=== PATIENT | male | born 1965 | race African-American/Black ===

== ENCOUNTER 2016-12-20 18:01 | Inpatient (IN) | payer OTHER, SELFPAY ==
[~2016-12-20] VITALS: Ht 185.4 cm; Wt 93.0 kg
[~2016-12-20 18:01] MED LIST: NOCURR
[2016-12-20 18:27] LABS: GLUCOSE,POINT OF CARE 141 MG/DL (70-110)
[2016-12-20 18:41] LABS: BASOPHILS % (AUTO) 0.9 % (0.0-2.0); EOSINOPHILS % (AUTO) 0.5 % (1.0-6.0); HEMATOCRIT 39.5 % (41-53); HEMOGLOBIN 13.3 g/dL (13.5-17.5); LYMPHOCYTES # (AUTO) 0.7 K/uL (1.0-4.8); LYMPHOCYTES % (AUTO) 24.4 % (22.0-44.0); MEAN CORPUSCULAR HEMOGLOBIN 29.8 pg (26.0-34.0); MEAN CORPUSCULAR HGB CONC 33.6 G/dL (31.0-37.0); MEAN CORPUSCULAR VOLUME 89 fL (80-100); MONOCYTES # (AUTO) 0.3 K/uL (0.1-1.0); NEUTROPHILS # (AUTO) 1.8 K/uL (1.8-7.7); NEUTROPHILS % (AUTO) 64.2 % (40.0-70.0); PLATELET COUNT (AUTO) 237 K/uL (150-450); RED BLOOD CELL COUNT(AUTO) 4.45 MIL/uL (4.50-5.90); RED CELL DISTRIBUTION WIDTH 14.3 % (11.5-14.5); WHITE BLOOD COUNT (AUTO) 2.7 K/uL (4.5-11.0)
[2016-12-20 18:50] LABS: ANION GAP 12 mmol/L (8-16); CALCIUM, TOTAL 8.4 mg/dL (8.8-10.5); CARBON DIOXIDE 28 mmol/L (22-29); CHLORIDE 103 mmol/L (98-107); CREATININE 0.85 mg/dL (0.60-1.30); GLOMERULAR FILTR. RATE CALC > 60 mL/min (>60); POTASSIUM 3.8 mmol/L (3.5-5.1); SODIUM SERUM 143 mmol/L (136-145); UREA NITROGEN, BLOOD 5 mg/dL (7-18)
[2016-12-20 18:56] LABS: ACETAMINOPHEN < 2 mcg/mL (10-30); ALANINE AMINOTRANSFERASE 32 U/L (12-78); ALBUMIN 3.7 g/dL (3.4-5.0); ASPARTATE AMINOTRANSFERASE 28 U/L (15-37); BILIRUBIN,TOTAL 0.6 mg/dL (0.1-1.0); TOTAL PROTEIN, SERUM 7.5 g/dL (6.4-8.2)
[2016-12-20 19:02] LABS: SALICYLATE < 2.8 mg/dL (2.8-20.0)
[2016-12-20 19:40] LABS: RBC MORPHOLOGY COMMENT NORMAL RBC MORPH
[2016-12-20] MEDS ORDERED: SODIUM CHLORIDE 0.9% 2,000 ML IV ONE (19:41)
[2016-12-20] MEDS: SODIUM CHLORIDE 0.9% 1,000 ML, SODIUM CHLORIDE 0.9% 1,000 ML IV ONE ×2 (20:09→20:52)
[2016-12-20] MEDS ORDERED: FLUMAZENIL 0.1 MG/ML 5 ML VIAL IVP ONE ×2 (20:15→20:45)
[2016-12-20] MEDS ORDERED: HydrALAZINE HCL 20 MG/ML VIAL IVP ONE (20:15)
[2016-12-20] MEDS ORDERED: ACETAMINOPHEN 325 MG TABLET PO PRN (22:30)
[2016-12-20] MEDS ORDERED: HALOPERIDOL LACTATE 5 MG/ML VIAL IVP ONE (22:30)
[2016-12-20] MEDS ORDERED: 0.9% SODIUM CHLORIDE 10 ML SYRINGE IVP PRN (22:30)
[2016-12-20 23:20] VITALS: BP 132/90
[2016-12-21] MEDS ORDERED: ACETAMINOPHEN 325 MG TABLET PO PRN (00:15)
[2016-12-21] MEDS ORDERED: IPRATROPIUM BROMIDE 0.5 MG/2.5 ML NEB SOLUTION NEB PRN (00:15)
[2016-12-21] MEDS ORDERED: ONDANSETRON HCL 4 MG/2 ML VIAL IVP PRN (00:15)
[2016-12-21] MEDS ORDERED: SODIUM CHLORIDE 0.45% 1,000 ML IV SCH (00:15)
[2016-12-21] MEDS ORDERED: ALBUTEROL SULFATE 2.5 MG/0.5 ML NEB SOLUTION NEB PRN (00:15)
[2016-12-21 01:28] LABS: AMMONIA 31 umol/L (11-32); TROPONIN I < 0.02 ng/mL (0.00-0.05)
[2016-12-21 05:05] VITALS: BP 144/91
[2016-12-21] MEDS ORDERED: INFLUENZA VIRUS VACCINE QVS 2017-18 (3YR+)/PF 60 MCG/0.5 ML SYRINGE IM ONE (07:00)
[2016-12-21] MEDS ORDERED: INSULIN ASPART 100 UNITS/ML SQ PRN (07:00)
[2016-12-21] MEDS ORDERED: CloNIDine HCL 0.1 MG TABLET PO PRN (07:00)
[2016-12-21] MEDS ORDERED: DEXTROSE 50%-WATER 25 GM/50 ML SYRINGE IVP PRN (07:00)
[2016-12-21 07:20] VITALS: BP 130/80
[2016-12-21] MEDS: PANTOPRAZOLE SODIUM 40 MG/VIAL IVP SCH (08:18)
[2016-12-21 09:09] LABS: GLUCOSE,POINT OF CARE 101 MG/DL (70-110)
[2016-12-21] MEDS ORDERED: MAGNESIUM SULFATE 2 GM, MVI, ADULT NO.1 WITH VIT K 10 ML, THIAMINE HCL 100 MG, FOLIC AC... IV ONE ×5 (09:30)
[2016-12-21 13:32] LABS: GLUCOSE,POINT OF CARE 121 MG/DL (70-110)
[2016-12-21] MEDS: ChlordiazePOXIDE HCL 25 MG CAPSULE PO SCH ×2 (15:35→20:51)
[2016-12-21 16:10] VITALS: BP 155/76
[2016-12-21 18:08] LABS: GLUCOSE,POINT OF CARE 89 MG/DL (70-110)
[2016-12-21 19:36] VITALS: BP 145/83
[2016-12-21 23:26] VITALS: BP 140/93
[2016-12-21] MEDS ORDERED: ZOLPIDEM TARTRATE 5 MG TABLET PO PRN (23:45)
[2016-12-21 23:52] LABS: GLUCOSE,POINT OF CARE 115 MG/DL (70-110)
[2016-12-22 05:02] VITALS: BP 137/86
[2016-12-22] MEDS: ChlordiazePOXIDE HCL 25 MG CAPSULE PO SCH ×2 (05:31→14:27)
[2016-12-22 05:48] LABS: GLUCOSE,POINT OF CARE 107 MG/DL (70-110)
[2016-12-22 06:18] LABS: BASOPHILS % (AUTO) 0.2 % (0.0-2.0); EOSINOPHILS % (AUTO) 2.9 % (1.0-6.0); HEMATOCRIT 35.8 % (41-53); HEMOGLOBIN 11.8 g/dL (13.5-17.5); LYMPHOCYTES # (AUTO) 1.1 K/uL (1.0-4.8); LYMPHOCYTES % (AUTO) 22.7 % (22.0-44.0); MEAN CORPUSCULAR HEMOGLOBIN 29.8 pg (26.0-34.0); MEAN CORPUSCULAR HGB CONC 33.1 G/dL (31.0-37.0); MEAN CORPUSCULAR VOLUME 90 fL (80-100); MONOCYTES # (AUTO) 0.4 K/uL (0.1-1.0); MONOCYTES % (AUTO) 8.6 % (2.0-9.0); NEUTROPHILS # (AUTO) 3.2 K/uL (1.8-7.7); NEUTROPHILS % (AUTO) 65.6 % (40.0-70.0); PLATELET COUNT (AUTO) 199 K/uL (150-450); RED BLOOD CELL COUNT(AUTO) 3.96 MIL/uL (4.50-5.90); RED CELL DISTRIBUTION WIDTH 14.5 % (11.5-14.5); WHITE BLOOD COUNT (AUTO) 4.8 K/uL (4.5-11.0)
[2016-12-22 06:27] LABS: ANION GAP 9 mmol/L (8-16); CALCIUM, TOTAL 8.2 mg/dL (8.8-10.5); CARBON DIOXIDE 24 mmol/L (22-29); CHLORIDE 107 mmol/L (98-107); CREATININE 0.77 mg/dL (0.60-1.30); GLOMERULAR FILTR. RATE CALC > 60 mL/min (>60); POTASSIUM 3.3 mmol/L (3.5-5.1); SODIUM SERUM 140 mmol/L (136-145); UREA NITROGEN, BLOOD 10 mg/dL (7-18)
[2016-12-22 07:28] VITALS: BP 159/84
[2016-12-22] MEDS: PANTOPRAZOLE SODIUM 40 MG/VIAL IVP SCH (08:15)
[2016-12-22 12:11] VITALS: BP 138/84
[2016-12-22] MEDS ORDERED: POTASSIUM CHLORIDE 10% 40 MEQ/30 ML LIQUID UDCUP PO ONE (12:45)
[2016-12-22] MEDS ORDERED: LIB25 PO ×2 (13:58)
[2016-12-22] MEDS ORDERED: LIB10 PO (13:58)
[2016-12-22 19:33] LABS: GLUCOSE,POINT OF CARE 120 MG/DL (70-110)
== END 2016-12-22 14:30 | disposition home or self-care (01) | DRG 775 ==
LOC: EMS 18:02 → 6N 22:16
PROVIDERS: ADMIT Hospitalist; ATTEND Hospitalist
PROC: 3E0234Z Introduction of Serum, Toxoid and Vaccine into Muscle, Percutaneous Approach (ICD-10-PCS; principal; 2016-12-21)
DX: F10.121 Alcohol abuse with intoxication delirium (principal); G92 Toxic encephalopathy; D61.1 Drug-induced aplastic anemia; E11.9 Type 2 diabetes mellitus without complications; F13.10 Sedative, hypnotic or anxiolytic abuse, uncomplicated; F25.9 Schizoaffective disorder, unspecified; R62.7 Adult failure to thrive; Y90.3 Blood alcohol level of 60-79 mg/100 ml; F32.9 Major depressive disorder, single episode, unspecified; Z23 Encounter for immunization; T49.6X5A Adverse effect of otorhinolaryngological drugs and preparations, initial encounter
CPT/HCPCS: 51702; 70450; 72125; 82962; 83036; 90471; 92610; 93005; 96361; 96374; 96375; 96376; 99291; C9113; G0480; G0481; J0360; J1630; J3411; J3475; J3490; J7030

== ENCOUNTER 2017-01-16 23:40 | Inpatient (IN) | payer MEDICAID, SELFPAY ==
[~2017-01-16] VITALS: Ht 182.9 cm; Wt 94.0 kg
[~2017-01-16 23:40] MED LIST changes: +LIB10 PO; +LIB25 PO
[2017-01-16] MEDS ORDERED: SERT50TA12 PO (23:58)
[2017-01-16] MEDS ORDERED: QUET25TA PO (23:58)
[2017-01-16] MEDS ORDERED: UNKNOWN MEDS PO (23:59)
[2017-01-17] VITALS (10 sets, daily range): BP systolic 116–145; BP diastolic 70–90
[2017-01-17 00:02] LABS: GLUCOSE,POINT OF CARE 173 MG/DL (70-110)
[2017-01-17 00:12] LABS: EOSINOPHILS # (AUTO) 0.09 K/uL (0.00-0.70); EOSINOPHILS % (AUTO) 1.38 % (1.0-6.0); HEMATOCRIT 44.3 % (41-53); HEMOGLOBIN 14.5 g/dL (13.5-17.5); LYMPHOCYTES # (AUTO) 1.2 K/uL (1.0-4.8); LYMPHOCYTES % (AUTO) 17.2 % (22.0-44.0); MEAN CORPUSCULAR HEMOGLOBIN 29.3 pg (26.0-34.0); MEAN CORPUSCULAR HGB CONC 32.8 G/dL (31.0-37.0); MEAN CORPUSCULAR VOLUME 89 fL (80-100); MONOCYTES # (AUTO) 0.7 K/uL (0.1-1.0); MONOCYTES % (AUTO) 10.1 % (2.0-9.0); NEUTROPHILS # (AUTO) 4.9 K/uL (1.8-7.7); NEUTROPHILS % (AUTO) 71.4 % (40.0-70.0); PLATELET COUNT (AUTO) 248 K/uL (150-450); RED BLOOD CELL COUNT(AUTO) 4.95 MIL/uL (4.50-5.90); RED CELL DISTRIBUTION WIDTH 15.1 % (11.5-14.5); WHITE BLOOD COUNT (AUTO) 6.8 K/uL (4.5-11.0)
[2017-01-17 00:28] LABS: ANION GAP 7 mmol/L (8-16); CALCIUM, TOTAL 8.8 mg/dL (8.8-10.5); CARBON DIOXIDE 26 mmol/L (22-29); CHLORIDE 97 mmol/L (98-107); CREATININE 0.91 mg/dL (0.60-1.30); GLOMERULAR FILTR. RATE CALC > 60 mL/min (>60); POTASSIUM 3.2 mmol/L (3.5-5.1); SODIUM SERUM 130 mmol/L (136-145); UREA NITROGEN, BLOOD 14 mg/dL (7-18)
[2017-01-17 00:36] LABS: ALANINE AMINOTRANSFERASE 58 U/L (12-78); ASPARTATE AMINOTRANSFERASE 111 U/L (15-37); BILIRUBIN,TOTAL 0.9 mg/dL (0.1-1.0); TOTAL PROTEIN, SERUM 8.2 g/dL (6.4-8.2)
[2017-01-17] MEDS ORDERED: CYANOCOBALAMIN 1,000 MCG/ML VIAL IM ONE (00:45)
[2017-01-17] MEDS ORDERED: GuaiFENesin/D-METHORPHAN [SUGAR-FREE] 200-20MG/10 ML SYRUP UDCUP PO PRN (00:45)
[2017-01-17] MEDS ORDERED: LORazepam 2 MG TABLET PO PRN (00:45)
[2017-01-17] MEDS ORDERED: HydrOXYzine PAMOATE 50 MG CAPSULE PO PRN (00:45)
[2017-01-17] MEDS ORDERED: POTASSIUM CHLORIDE 20 MEQ ER TABLET PO ONE (00:45)
[2017-01-17] MEDS: LORazepam 2 MG TABLET PO PRN ×2 (04:28→08:44)
[2017-01-17 04:56] LABS: APPEARANCE,URINE CLEAR (CLEAR); GLUCOSE, URINE (UA) NEGATIVE (NEGATIVE); KETONES,URINE NEGATIVE (NEGATIVE); LEUKOCYTE ESTERASE ,URINE NEGATIVE (NEGATIVE); OCCULT BLOOD,URINE NEGATIVE (NEGATIVE); PH,URINE 5.5 (5.0-8.0); PROTEIN,URINE NEGATIVE (NEGATIVE)
[2017-01-17 04:57] LABS: ADD UA MICROSCOPIC NO
[2017-01-17 07:07] LABS: GLUCOSE,POINT OF CARE 146 MG/DL (70-110)
[2017-01-17] MEDS: LOPERAMIDE HCL 2 MG CAPSULE PO PRN ×2 (08:44→16:39)
[2017-01-17] MEDS: MULTIVITAMINS WITH MINERALS, THERAPEUTIC TABLET PO SCH (09:00)
[2017-01-17] MEDS: THIAMINE HCL 100 MG TABLET PO SCH ×2 (09:00→16:40)
[2017-01-17] MEDS: SERTRALINE HCL 50 MG TABLET PO SCH (09:00)
[2017-01-17] MEDS: FOLIC ACID 1 MG TABLET PO SCH (09:00)
[2017-01-17] MEDS ORDERED: PROMETHAZINE HCL 25 MG/ML VIAL IM ONE (12:30)
[2017-01-17] MEDS ORDERED: GLUCAGON,HUMAN RECOMBINANT 1 MG VIAL IM PRN (14:00)
[2017-01-17] MEDS ORDERED: DEXTROSE 50%-WATER 25 GM/50 ML SYRINGE IVP PRN (14:00)
[2017-01-17] MEDS ORDERED: ACETAMINOPHEN 325 MG TABLET PO PRN (14:00)
[2017-01-17] MEDS: ONDANSETRON HCL 4 MG TABLET PO PRN (14:13)
[2017-01-17 16:33] LABS: GLUCOSE,POINT OF CARE 189 MG/DL (70-110)
[2017-01-17 16:38] LABS: ANION GAP 14 mmol/L (8-16); CARBON DIOXIDE 25 mmol/L (22-29); CHLORIDE 94 mmol/L (98-107); CREATININE 0.95 mg/dL (0.60-1.30); GLOMERULAR FILTR. RATE CALC > 60 mL/min (>60); POTASSIUM 4.5 mmol/L (3.5-5.1); SODIUM SERUM 133 mmol/L (136-145); UREA NITROGEN, BLOOD 15 mg/dL (7-18)
[2017-01-17] MEDS: INSULIN ASPART 100 UNITS/ML SQ PRN ×2 (18:11→21:11)
[2017-01-17] MEDS: QUEtiapine FUMARATE 200 MG TABLET PO SCH (20:19)
[2017-01-17 20:44] LABS: GLUCOSE,POINT OF CARE 172 MG/DL (70-110)
[2017-01-18] VITALS (8 sets, daily range): BP systolic 119–138; BP diastolic 77–89
[2017-01-18 05:59] LABS: GLUCOSE COMMENT 1 FASTING; GLUCOSE,POINT OF CARE 235 MG/DL (70-110)
[2017-01-18] MEDS: IBUPROFEN 400 MG TABLET PO PRN ×2 (06:37→20:51)
[2017-01-18] MEDS: INSULIN ASPART 100 UNITS/ML SQ PRN ×3 (06:59→20:50)
[2017-01-18] MEDS ORDERED: LORazepam 2 MG TABLET PO PRN (07:00)
[2017-01-18] MEDS: MULTIVITAMINS WITH MINERALS, THERAPEUTIC TABLET PO SCH (10:14)
[2017-01-18] MEDS: FOLIC ACID 1 MG TABLET PO SCH (10:15)
[2017-01-18] MEDS: SERTRALINE HCL 50 MG TABLET PO SCH (10:15)
[2017-01-18] MEDS: THIAMINE HCL 100 MG TABLET PO SCH ×2 (10:15→16:28)
[2017-01-18] MEDS: LORazepam 2 MG TABLET PO SCH ×4 (10:15→20:48)
[2017-01-18 11:17] LABS: GLUCOSE COMMENT 1 Received Meds; GLUCOSE,POINT OF CARE 197 MG/DL (70-110)
[2017-01-18 17:48] LABS: GLUCOSE,POINT OF CARE 88 MG/DL (70-110)
[2017-01-18] MEDS: ONDANSETRON HCL 4 MG TABLET PO PRN (18:14)
[2017-01-18] MEDS: QUEtiapine FUMARATE 200 MG TABLET PO SCH (20:48)
[2017-01-18 20:52] LABS: GLUCOSE,POINT OF CARE 221 MG/DL (70-110)
[2017-01-19 00:46] VITALS: BP 122/86
[2017-01-19 05:39] LABS: GLUCOSE COMMENT 1 Received Meds; GLUCOSE,POINT OF CARE 183 MG/DL (70-110)
[2017-01-19 07:08] LABS: ANION GAP 9 mmol/L (8-16); CALCIUM, TOTAL 8.5 mg/dL (8.8-10.5); CARBON DIOXIDE 28 mmol/L (22-29); CHLORIDE 94 mmol/L (98-107); CREATININE 0.87 mg/dL (0.60-1.30); GLOMERULAR FILTR. RATE CALC > 60 mL/min (>60); POTASSIUM 3.6 mmol/L (3.5-5.1); SODIUM SERUM 131 mmol/L (136-145); UREA NITROGEN, BLOOD 14 mg/dL (7-18)
[2017-01-19] MEDS: INSULIN ASPART 100 UNITS/ML SQ PRN ×4 (07:08→21:55)
[2017-01-19] MEDS: FOLIC ACID 1 MG TABLET PO SCH (10:37)
[2017-01-19] MEDS: MULTIVITAMINS WITH MINERALS, THERAPEUTIC TABLET PO SCH (10:38)
[2017-01-19] MEDS: SERTRALINE HCL 50 MG TABLET PO SCH (10:38)
[2017-01-19] MEDS: LORazepam 2 MG TABLET PO SCH ×4 (10:38→21:51)
[2017-01-19] MEDS: THIAMINE HCL 100 MG TABLET PO SCH ×2 (10:38→16:57)
[2017-01-19 12:17] LABS: GLUCOSE,POINT OF CARE 244 MG/DL (70-110)
[2017-01-19 13:52] VITALS: BP 131/84
[2017-01-19 16:15] VITALS: BP 121/86
[2017-01-19 17:13] LABS: GLUCOSE,POINT OF CARE 165 MG/DL (70-110)
[2017-01-19 21:43] LABS: GLUCOSE,POINT OF CARE 170 MG/DL (70-110)
[2017-01-19] MEDS: QUEtiapine FUMARATE 200 MG TABLET PO SCH (21:51)
[2017-01-20 01:15] VITALS: BP 130/78
[2017-01-20] MEDS: ZOLPIDEM TARTRATE 10 MG TABLET PO PRN ×2 (01:26→21:15)
[2017-01-20] MEDS: IBUPROFEN 400 MG TABLET PO PRN (01:27)
[2017-01-20 06:04] LABS: GLUCOSE COMMENT 1 Received Meds; GLUCOSE,POINT OF CARE 228 MG/DL (70-110)
[2017-01-20] MEDS ORDERED: LORazepam 1 MG TABLET PO PRN (07:00)
[2017-01-20] MEDS: INSULIN ASPART 100 UNITS/ML SQ PRN ×4 (07:05→21:50)
[2017-01-20 08:00] VITALS: BP 132/83
[2017-01-20] MEDS: MULTIVITAMINS WITH MINERALS, THERAPEUTIC TABLET PO SCH (08:38)
[2017-01-20] MEDS: FOLIC ACID 1 MG TABLET PO SCH (08:38)
[2017-01-20] MEDS: LORazepam 1 MG TABLET PO SCH ×4 (08:38→20:23)
[2017-01-20] MEDS: SERTRALINE HCL 50 MG TABLET PO SCH (08:38)
[2017-01-20] MEDS: THIAMINE HCL 100 MG TABLET PO SCH ×2 (08:38→16:32)
[2017-01-20 11:22] LABS: GLUCOSE,POINT OF CARE 185 MG/DL (70-110)
[2017-01-20 16:38] LABS: GLUCOSE,POINT OF CARE 165 MG/DL (70-110)
[2017-01-20 16:44] VITALS: BP 139/85
[2017-01-20] MEDS: QUEtiapine FUMARATE 200 MG TABLET PO SCH (20:23)
[2017-01-20 20:28] LABS: GLUCOSE,POINT OF CARE 160 MG/DL (70-110)
[2017-01-21 00:30] VITALS: BP 119/87
[2017-01-21] MEDS: IBUPROFEN 400 MG TABLET PO PRN (00:41)
[2017-01-21 06:07] LABS: GLUCOSE COMMENT 1 Received Meds; GLUCOSE,POINT OF CARE 172 MG/DL (70-110)
[2017-01-21] MEDS ORDERED: LORazepam 1 MG TABLET PO PRN (07:00)
[2017-01-21] MEDS: INSULIN ASPART 100 UNITS/ML SQ PRN ×3 (07:04→20:56)
[2017-01-21] MEDS: THIAMINE HCL 100 MG TABLET PO SCH ×2 (08:31→16:16)
[2017-01-21] MEDS: MULTIVITAMINS WITH MINERALS, THERAPEUTIC TABLET PO SCH (08:31)
[2017-01-21] MEDS: FOLIC ACID 1 MG TABLET PO SCH (08:31)
[2017-01-21] MEDS: SERTRALINE HCL 50 MG TABLET PO SCH (08:31)
[2017-01-21 09:02] LABS: ANION GAP 8 mmol/L (8-16); CARBON DIOXIDE 28 mmol/L (22-29); CHLORIDE 97 mmol/L (98-107); CREATININE 0.87 mg/dL (0.60-1.30); GLOMERULAR FILTR. RATE CALC > 60 mL/min (>60); POTASSIUM 3.9 mmol/L (3.5-5.1); SODIUM SERUM 133 mmol/L (136-145); UREA NITROGEN, BLOOD 17 mg/dL (7-18)
[2017-01-21 09:25] VITALS: BP 123/83
[2017-01-21 11:12] LABS: GLUCOSE,POINT OF CARE 167 MG/DL (70-110)
[2017-01-21 16:23] LABS: GLUCOSE,POINT OF CARE 131 MG/DL (70-110)
[2017-01-21 17:52] VITALS: BP 110/85
[2017-01-21] MEDS: ZOLPIDEM TARTRATE 10 MG TABLET PO PRN (20:57)
[2017-01-21] MEDS: QUEtiapine FUMARATE 200 MG TABLET PO SCH (20:57)
[2017-01-21 21:03] LABS: GLUCOSE,POINT OF CARE 248 MG/DL (70-110)
[2017-01-22 05:43] LABS: GLUCOSE COMMENT 1 Received Meds; GLUCOSE,POINT OF CARE 209 MG/DL (70-110)
[2017-01-22] MEDS: INSULIN ASPART 100 UNITS/ML SQ PRN ×4 (07:02→21:43)
[2017-01-22] MEDS: IBUPROFEN 400 MG TABLET PO PRN ×2 (07:54→16:26)
[2017-01-22 08:15] VITALS: BP 126/76
[2017-01-22] MEDS: FOLIC ACID 1 MG TABLET PO SCH (08:27)
[2017-01-22] MEDS: THIAMINE HCL 100 MG TABLET PO SCH ×2 (08:27→16:28)
[2017-01-22] MEDS: SERTRALINE HCL 50 MG TABLET PO SCH (08:27)
[2017-01-22] MEDS: MULTIVITAMINS WITH MINERALS, THERAPEUTIC TABLET PO SCH (08:27)
[2017-01-22 08:54] VITALS: BP 126/76
[2017-01-22 11:12] LABS: GLUCOSE,POINT OF CARE 204 MG/DL (70-110)
[2017-01-22 16:25] VITALS: BP 129/78
[2017-01-22] MEDS: HALOPERIDOL 5 MG TABLET PO PRN (16:26)
[2017-01-22 16:32] LABS: GLUCOSE COMMENT 1 Received Meds; GLUCOSE,POINT OF CARE 152 MG/DL (70-110)
[2017-01-22 17:34] VITALS: BP 122/81
[2017-01-22] MEDS: QUEtiapine FUMARATE 200 MG TABLET PO SCH (20:21)
[2017-01-22 20:28] LABS: GLUCOSE COMMENT 1 Received Meds; GLUCOSE,POINT OF CARE 277 MG/DL (70-110)
[2017-01-23 06:08] LABS: GLUCOSE COMMENT 1 Received Meds; GLUCOSE,POINT OF CARE 208 MG/DL (70-110)
[2017-01-23] MEDS: INSULIN ASPART 100 UNITS/ML SQ PRN ×4 (06:53→20:32)
[2017-01-23 08:15] VITALS: BP 119/71
[2017-01-23] MEDS: FOLIC ACID 1 MG TABLET PO SCH (10:16)
[2017-01-23] MEDS: THIAMINE HCL 100 MG TABLET PO SCH ×2 (10:16→16:11)
[2017-01-23] MEDS: MULTIVITAMINS WITH MINERALS, THERAPEUTIC TABLET PO SCH (10:16)
[2017-01-23] MEDS: SERTRALINE HCL 50 MG TABLET PO SCH (10:16)
[2017-01-23] MEDS: IBUPROFEN 400 MG TABLET PO PRN (10:18)
[2017-01-23 11:32] LABS: GLUCOSE,POINT OF CARE 262 MG/DL (70-110)
[2017-01-23] MEDS: HALOPERIDOL 5 MG TABLET PO PRN (16:11)
[2017-01-23 16:17] LABS: GLUCOSE COMMENT 1 Received Meds; GLUCOSE,POINT OF CARE 173 MG/DL (70-110)
[2017-01-23 17:00] VITALS: BP 126/68
[2017-01-23] MEDS: QUEtiapine FUMARATE 200 MG TABLET PO SCH (20:07)
[2017-01-23 20:12] LABS: GLUCOSE COMMENT 1 Received Meds; GLUCOSE,POINT OF CARE 248 MG/DL (70-110)
[2017-01-24 02:26] VITALS: BP 134/75
[2017-01-24 05:58] LABS: GLUCOSE COMMENT 1 Juice/Food/D50 Given; GLUCOSE COMMENT 2 Received Meds; GLUCOSE,POINT OF CARE 264 MG/DL (70-110)
[2017-01-24] MEDS: INSULIN ASPART 100 UNITS/ML SQ PRN ×4 (07:10→20:27)
[2017-01-24 08:16] VITALS: BP 144/69
[2017-01-24] MEDS: FOLIC ACID 1 MG TABLET PO SCH (08:16)
[2017-01-24] MEDS: SERTRALINE HCL 50 MG TABLET PO SCH (08:16)
[2017-01-24] MEDS: IBUPROFEN 400 MG TABLET PO PRN ×2 (08:16→16:59)
[2017-01-24] MEDS: THIAMINE HCL 100 MG TABLET PO SCH ×2 (08:16→16:59)
[2017-01-24] MEDS: MULTIVITAMINS WITH MINERALS, THERAPEUTIC TABLET PO SCH (08:16)
[2017-01-24 11:43] LABS: GLUCOSE,POINT OF CARE 241 MG/DL (70-110)
[2017-01-24 17:00] VITALS: BP 126/77
[2017-01-24 17:02] LABS: GLUCOSE COMMENT 1 Received Meds; GLUCOSE,POINT OF CARE 159 MG/DL (70-110)
[2017-01-24] MEDS: QUEtiapine FUMARATE 200 MG TABLET PO SCH (20:26)
[2017-01-24 20:32] LABS: GLUCOSE COMMENT 1 Received Meds; GLUCOSE,POINT OF CARE 202 MG/DL (70-110)
[2017-01-25 05:48] LABS: GLUCOSE COMMENT 1 Juice/Food/D50 Given; GLUCOSE COMMENT 2 Received Meds; GLUCOSE,POINT OF CARE 230 MG/DL (70-110)
[2017-01-25] MEDS: IBUPROFEN 400 MG TABLET PO PRN (07:00)
[2017-01-25] MEDS: INSULIN ASPART 100 UNITS/ML SQ PRN ×2 (07:21→11:56)
[2017-01-25 08:30] VITALS: BP 127/90
[2017-01-25] MEDS: THIAMINE HCL 100 MG TABLET PO SCH ×2 (10:08→17:45)
[2017-01-25] MEDS: MULTIVITAMINS WITH MINERALS, THERAPEUTIC TABLET PO SCH (10:09)
[2017-01-25] MEDS: SERTRALINE HCL 50 MG TABLET PO SCH (10:09)
[2017-01-25] MEDS: FOLIC ACID 1 MG TABLET PO SCH (10:09)
[2017-01-25 11:38] LABS: GLUCOSE,POINT OF CARE 201 MG/DL (70-110)
== END 2017-01-25 18:15 | disposition home or self-care (01) | DRG 750 ==
LOC: EMS 23:42 → 3EI 01-17 02:16
PROVIDERS: ADMIT Psychiatry & Neurology Child & Adolescent Psychiatry; ATTEND Psychiatry & Neurology Child & Adolescent Psychiatry
DX: F25.1 Schizoaffective disorder, depressive type (principal); R45.851 Suicidal ideations; E87.1 Hypo-osmolality and hyponatremia; E11.9 Type 2 diabetes mellitus without complications; E87.6 Hypokalemia; F10.20 Alcohol dependence, uncomplicated; Z79.899 Other long term (current) drug therapy; F41.9 Anxiety disorder, unspecified; F19.10 Other psychoactive substance abuse, uncomplicated
CPT/HCPCS: 72100; 82962; 83036; 87081; 96372; 99285; G0480; J2550; J3420; Q0162

== ENCOUNTER 2017-02-02 19:24 | Emergency (ER) | payer MEDICAID, OTHER ==
[~2017-02-02] VITALS: Ht 182.9 cm; Wt 113.6 kg
[~2017-02-02 19:24] MED LIST changes: -LIB10 PO; -LIB25 PO; -NOCURR; +QUET25TA PO; +SERT50TA12 PO
[2017-02-02] MEDS ORDERED: QUET200T PO (20:08)
[2017-02-02 20:26] LABS: BASOPHILS % (AUTO) 0.5 % (0.0-2.0); EOSINOPHILS % (AUTO) 0.9 % (1.0-6.0); HEMATOCRIT 41.6 % (41-53); HEMOGLOBIN 13.9 g/dL (13.5-17.5); LYMPHOCYTES # (AUTO) 1.8 K/uL (1.0-4.8); LYMPHOCYTES % (AUTO) 36.8 % (22.0-44.0); MEAN CORPUSCULAR HEMOGLOBIN 29.5 pg (26.0-34.0); MEAN CORPUSCULAR HGB CONC 33.4 G/dL (31.0-37.0); MEAN CORPUSCULAR VOLUME 88 fL (80-100); MONOCYTES # (AUTO) 0.6 K/uL (0.1-1.0); MONOCYTES % (AUTO) 11.2 % (2.0-9.0); NEUTROPHILS # (AUTO) 2.5 K/uL (1.8-7.7); NEUTROPHILS % (AUTO) 50.6 % (40.0-70.0); PLATELET COUNT (AUTO) 489 K/uL (150-450); RED BLOOD CELL COUNT(AUTO) 4.71 MIL/uL (4.50-5.90); RED CELL DISTRIBUTION WIDTH 15.2 % (11.5-14.5); WHITE BLOOD COUNT (AUTO) 4.9 K/uL (4.5-11.0)
[2017-02-02 20:43] LABS: ANION GAP 9 mmol/L (8-16); CALCIUM, TOTAL 8.7 mg/dL (8.8-10.5); CARBON DIOXIDE 31 mmol/L (22-29); CHLORIDE 102 mmol/L (98-107); CREATININE 0.98 mg/dL (0.60-1.30); GLOMERULAR FILTR. RATE CALC > 60 mL/min (>60); POTASSIUM 3.6 mmol/L (3.5-5.1); SODIUM SERUM 142 mmol/L (136-145); UREA NITROGEN, BLOOD 14 mg/dL (7-18)
[2017-02-02 20:47] LABS: ALANINE AMINOTRANSFERASE 137 U/L (12-78); ALBUMIN 3.3 g/dL (3.4-5.0); ASPARTATE AMINOTRANSFERASE 234 U/L (15-37); BILIRUBIN,TOTAL 0.3 mg/dL (0.1-1.0); TOTAL PROTEIN, SERUM 7.8 g/dL (6.4-8.2)
[2017-02-03 05:35] VITALS: BP 120/80
== END 2017-02-03 06:36 | disposition home or self-care (01) ==
LOC: EMS 19:27
DX: F10.129 Alcohol abuse with intoxication, unspecified (principal); F32.9 Major depressive disorder, single episode, unspecified; R74.0 Nonspecific elevation of levels of transaminase and lactic acid dehydrogenase [LDH]; F20.9 Schizophrenia, unspecified; E11.9 Type 2 diabetes mellitus without complications; Y90.8 Blood alcohol level of 240 mg/100 ml or more
CPT/HCPCS: 36415; 80053; 80307; 85025; 99285; G0480

== ENCOUNTER 2017-02-13 00:46 | Inpatient (IN) | payer MEDICAID, OTHER, SELFPAY ==
[~2017-02-13] VITALS: Ht 182.9 cm; Wt 97.7 kg
[~2017-02-13 00:46] MED LIST changes: +QUET200T PO; -QUET25TA PO
[2017-02-13 02:13] LABS: BASOPHILS % (AUTO) 0.1 % (0.0-2.0); EOSINOPHILS % (AUTO) 2.53 % (1.0-6.0); HEMATOCRIT 40.8 % (41-53); HEMOGLOBIN 13.3 g/dL (13.5-17.5); LYMPHOCYTES # (AUTO) 1.6 K/uL (1.0-4.8); LYMPHOCYTES % (AUTO) 38.5 % (22.0-44.0); MEAN CORPUSCULAR HEMOGLOBIN 28.9 pg (26.0-34.0); MEAN CORPUSCULAR HGB CONC 32.6 G/dL (31.0-37.0); MEAN CORPUSCULAR VOLUME 89 fL (80-100); MONOCYTES # (AUTO) 0.9 K/uL (0.1-1.0); MONOCYTES % (AUTO) 21.2 % (2.0-9.0); NEUTROPHILS # (AUTO) 1.5 K/uL (1.8-7.7); NEUTROPHILS % (AUTO) 37.8 % (40.0-70.0); PLATELET COUNT (AUTO) 228 K/uL (150-450); RED BLOOD CELL COUNT(AUTO) 4.61 MIL/uL (4.50-5.90); RED CELL DISTRIBUTION WIDTH 15.5 % (11.5-14.5)
[2017-02-13 02:17] LABS: ANION GAP 8 mmol/L (8-16); CALCIUM, TOTAL 9.6 mg/dL (8.8-10.5); CARBON DIOXIDE 32 mmol/L (22-29); CHLORIDE 98 mmol/L (98-107); CREATININE 0.84 mg/dL (0.60-1.30); GLOMERULAR FILTR. RATE CALC > 60 mL/min (>60); SODIUM SERUM 138 mmol/L (136-145); UREA NITROGEN, BLOOD 15 mg/dL (7-18)
[2017-02-13 02:23] LABS: ALANINE AMINOTRANSFERASE 142 U/L (12-78); ALBUMIN 3.6 g/dL (3.4-5.0); ASPARTATE AMINOTRANSFERASE 34 U/L (15-37); BILIRUBIN,TOTAL 0.3 mg/dL (0.1-1.0); TOTAL PROTEIN, SERUM 8.3 g/dL (6.4-8.2)
[2017-02-13] MEDS ORDERED: HALOPERIDOL 5 MG TABLET PO PRN (04:15)
[2017-02-13 15:07] VITALS: BP 116/64
[2017-02-13 18:30] VITALS: BP 120/74
[2017-02-13 19:30] VITALS: BP 118/72
[2017-02-13 19:52] LABS: GLUCOSE,POINT OF CARE 132 MG/DL (70-110)
[2017-02-13 20:30] VITALS: BP 122/76
[2017-02-13 21:39] VITALS: BP 107/60
[2017-02-14 01:30] VITALS: BP 110/70
[2017-02-14] MEDS ORDERED: PNEUMOCOCCAL VACCINE POLYVALENT 0.5 ML VIAL [PPSV23] IM ONE (05:00)
[2017-02-14 06:18] VITALS: BP 109/66
[2017-02-14 08:48] VITALS: BP 110/67
[2017-02-14 09:30] VITALS: BP 118/71
[2017-02-14] MEDS: NICOTINE 14 MG/24 HOUR PATCH TD SCH (09:33)
[2017-02-14] MEDS ORDERED: SERT50TA12 PO (10:15)
[2017-02-14] MEDS ORDERED: QUET200T PO (10:15)
[2017-02-14] MEDS ORDERED: GLUCAGON,HUMAN RECOMBINANT 1 MG VIAL IM PRN (10:45)
[2017-02-14 13:30] VITALS: BP 116/86
[2017-02-14] MEDS: LORazepam 2 MG TABLET PO PRN ×2 (14:55→22:52)
[2017-02-14] MEDS ORDERED: DIAZEPAM 10 MG TABLET PO PRN (15:30)
[2017-02-14 17:12] LABS: GLUCOSE,POINT OF CARE 137 MG/DL (70-110)
[2017-02-14 17:44] VITALS: BP 119/74
[2017-02-14] MEDS: INSULIN ASPART 100 UNITS/ML SQ PRN (20:03)
[2017-02-14] MEDS: ZOLPIDEM TARTRATE 10 MG TABLET PO PRN (20:04)
[2017-02-14 20:47] LABS: GLUCOSE COMMENT 1 Received Meds; GLUCOSE,POINT OF CARE 225 MG/DL (70-110)
[2017-02-15 00:30] VITALS: BP 124/76
[2017-02-15] MEDS: INSULIN ASPART 100 UNITS/ML SQ PRN ×4 (06:14→20:27)
[2017-02-15 06:43] LABS: GLUCOSE COMMENT 1 Received Meds; GLUCOSE,POINT OF CARE 150 MG/DL (70-110)
[2017-02-15] MEDS ORDERED: DIAZEPAM 10 MG TABLET PO PRN (07:00)
[2017-02-15 08:32] VITALS: BP 111/69
[2017-02-15 08:55] LABS: CHOL/HDL RATIO 3.5 (4.2-7.3); THYROID STIMULATING HORMONE 3.77 uIU/mL (0.36-3.74)
[2017-02-15] MEDS: DIAZEPAM 10 MG TABLET PO SCH ×4 (09:32→21:19)
[2017-02-15] MEDS: ARIPiprazole 15 MG TABLET PO SCH (09:32)
[2017-02-15] MEDS: NICOTINE 14 MG/24 HOUR PATCH TD SCH (09:33)
[2017-02-15 11:48] LABS: GLUCOSE,POINT OF CARE 155 MG/DL (70-110)
[2017-02-15] MEDS: LORazepam 2 MG TABLET PO PRN (14:40)
[2017-02-15 14:53] VITALS: BP 111/69
[2017-02-15 16:00] VITALS: BP 119/88
[2017-02-15 16:26] VITALS: BP 119/88
[2017-02-15 16:42] LABS: GLUCOSE COMMENT 1 Received Meds; GLUCOSE,POINT OF CARE 163 MG/DL (70-110)
[2017-02-15] MEDS: FERROUS SULFATE 325 MG EC TABLET PO SCH (16:51)
[2017-02-15 21:15] VITALS: BP 122/65
[2017-02-15 21:27] LABS: GLUCOSE COMMENT 1 Received Meds; GLUCOSE,POINT OF CARE 168 MG/DL (70-110)
[2017-02-15] MEDS: ZOLPIDEM TARTRATE 10 MG TABLET PO PRN (22:27)
[2017-02-16 00:52] VITALS: BP 123/81
[2017-02-16] MEDS: INSULIN ASPART 100 UNITS/ML SQ PRN ×2 (06:38→11:25)
[2017-02-16] MEDS: FERROUS SULFATE 325 MG EC TABLET PO SCH ×2 (06:42→11:35)
[2017-02-16 06:54] LABS: GLUCOSE,POINT OF CARE 181 MG/DL (70-110)
[2017-02-16 08:16] VITALS: BP 105/65
[2017-02-16] MEDS: ARIPiprazole 15 MG TABLET PO SCH (08:32)
[2017-02-16] MEDS: DIAZEPAM 10 MG TABLET PO SCH ×2 (08:33→15:06)
[2017-02-16] MEDS: NICOTINE 14 MG/24 HOUR PATCH TD SCH (08:33)
[2017-02-16] MEDS ORDERED: ARIP15TA2 PO (10:36)
[2017-02-16 11:12] LABS: GLUCOSE,POINT OF CARE 159 MG/DL (70-110)
[2017-02-17] MEDS ORDERED: DIAZEPAM 5 MG TABLET PO PRN (07:00)
[2017-02-17] MEDS ORDERED: DIAZEPAM 5 MG TABLET PO SCH (09:00)
[2017-02-18] MEDS ORDERED: DIAZEPAM 5 MG TABLET PO PRN (07:00)
== END 2017-02-16 15:00 | disposition home or self-care (01) | DRG 750 ==
LOC: EMS 00:47 → AHU 08:26 → B2S 17:15
PROVIDERS: ADMIT Psychiatry & Neurology Child & Adolescent Psychiatry; ATTEND Psychiatry & Neurology Child & Adolescent Psychiatry
DX: F25.9 Schizoaffective disorder, unspecified (principal); R45.851 Suicidal ideations; E11.9 Type 2 diabetes mellitus without complications; F32.9 Major depressive disorder, single episode, unspecified; D64.9 Anemia, unspecified; F10.10 Alcohol abuse, uncomplicated; F19.10 Other psychoactive substance abuse, uncomplicated; Z79.4 Long term (current) use of insulin
CPT/HCPCS: 82962; 83036; 84439; 84443; 87081; 99285; G0480

== ENCOUNTER 2017-03-18 23:53 | Emergency (ER) | payer MEDICAID, SELFPAY ==
[~2017-03-18] VITALS: Ht 182.9 cm; Wt 90.9 kg
[~2017-03-18 23:53] MED LIST changes: +ARIP15TA2 PO; -QUET200T PO; -SERT50TA12 PO
[2017-03-19] MEDS ORDERED: HYDR-4031 PO (00:20)
[2017-03-19] MEDS ORDERED: QUET200T PO (00:20)
[2017-03-19] MEDS ORDERED: PROZ10 PO (00:20)
[2017-03-19 02:52] VITALS: BP 112/65
== END 2017-03-19 03:56 | disposition home or self-care (01) ==
LOC: EMS 23:54
DX: F32.9 Major depressive disorder, single episode, unspecified (principal); F10.10 Alcohol abuse, uncomplicated; E11.9 Type 2 diabetes mellitus without complications; F20.9 Schizophrenia, unspecified
CPT/HCPCS: 99285

== ENCOUNTER 2017-03-19 22:01 | Emergency (ER) | payer MEDICAID, SELFPAY ==
[~2017-03-19] VITALS: Ht 177.8 cm; Wt 100.0 kg
[~2017-03-19 22:01] MED LIST changes: +HYDR-4031 PO; +PROZ10 PO; +QUET200T PO
[2017-03-19 22:18] LABS: GLUCOSE,POINT OF CARE 171 MG/DL (70-110)
[2017-03-20] MEDS ORDERED: GuaiFENesin/D-METHORPHAN [SUGAR-FREE] 200-20MG/10 ML SYRUP UDCUP PO ONE (00:45)
[2017-03-20] MEDS ORDERED: ACETAMINOPHEN 500 MG TABLET PO ONE (00:45)
[2017-03-20] MEDS ORDERED: IBUPROFEN 600 MG TABLET PO ONE (00:45)
[2017-03-20 01:39] LABS: ANION GAP 14 mmol/L (8-16); CALCIUM, TOTAL 8.6 mg/dL (8.8-10.5); CARBON DIOXIDE 22 mmol/L (22-29); CHLORIDE 96 mmol/L (98-107); CREATININE 0.81 mg/dL (0.60-1.30); GLOMERULAR FILTR. RATE CALC > 60 mL/min (>60); GLUCOSE,RANDOM 186 mg/dL (70-110); POTASSIUM 4.1 mmol/L (3.5-5.1); SODIUM SERUM 132 mmol/L (136-145); UREA NITROGEN, BLOOD 7 mg/dL (7-18)
[2017-03-20 01:43] LABS: HEMATOCRIT 38.7 % (41-53); HEMOGLOBIN 12.5 g/dL (13.5-17.5); MEAN CORPUSCULAR HEMOGLOBIN 29.3 pg (26.0-34.0); MEAN CORPUSCULAR HGB CONC 32.3 G/dL (31.0-37.0); MEAN CORPUSCULAR VOLUME 91 fL (80-100); RED BLOOD CELL COUNT(AUTO) 4.27 MIL/uL (4.50-5.90); RED CELL DISTRIBUTION WIDTH 15.5 % (11.5-14.5)
[2017-03-20 02:02] LABS: PLATELET COUNT (AUTO) 108 K/uL (150-450)
[2017-03-20 02:03] LABS: BAND NEUTROPHILS % (MANUAL) 0 % (1-5); LYMPHOCYTES % (MANUAL) 15 % (22-44); MONOCYTES % (MANUAL) 1 % (2-9); PLATELET MORPHOLOGY COMMENT GIANT PLTS PRESENT; SEGMENTED NEUTROPHILS % 84 % (40-70)
[2017-03-20 02:43] VITALS: BP 129/81
== END 2017-03-20 03:30 | disposition home or self-care (01) ==
LOC: EMS 22:04
DX: J40 Bronchitis, not specified as acute or chronic (principal); J06.9 Acute upper respiratory infection, unspecified; F20.9 Schizophrenia, unspecified; E11.65 Type 2 diabetes mellitus with hyperglycemia; F41.9 Anxiety disorder, unspecified; M79.1 Myalgia; F32.9 Major depressive disorder, single episode, unspecified
CPT/HCPCS: 82962; 99285

== ENCOUNTER 2017-11-01 00:06 | Emergency (ER) | payer MEDICAID, OTHER ==
[~2017-11-01] VITALS: Ht 182.9 cm; Wt 118.2 kg
[~2017-11-01 00:06] MED LIST changes: -ARIP15TA2 PO
[2017-11-01 00:23] LABS: GLUCOSE,POINT OF CARE 102 MG/DL (70-110)
[2017-11-01] MEDS ORDERED: HYDR50CA10 PO (00:30)
[2017-11-01] MEDS ORDERED: OMEG-150 PO (00:30)
[2017-11-01] MEDS ORDERED: METF500T6 PO (00:30)
[2017-11-01] MEDS ORDERED: BENZ1TAB10 PO (00:30)
[2017-11-01] MEDS ORDERED: QUET200T PO (00:30)
[2017-11-01] MEDS ORDERED: QUET25TA PO (00:30)
[2017-11-01] MEDS ORDERED: SERT50TA12 PO (00:30)
[2017-11-01] MEDS ORDERED: IBUPROFEN 800 MG TABLET PO ONE (04:15)
[2017-11-01 05:19] VITALS: BP 131/70
== END 2017-11-01 05:54 | disposition home or self-care (01) ==
LOC: EMS 00:06
DX: S39.012A Strain of muscle, fascia and tendon of lower back, initial encounter (principal); E11.9 Type 2 diabetes mellitus without complications; F32.9 Major depressive disorder, single episode, unspecified; F20.9 Schizophrenia, unspecified; Z79.84 Long term (current) use of oral hypoglycemic drugs; X50.0XXA Overexertion from strenuous movement or load, initial encounter; Y93.89 Activity, other specified; Y92.89 Other specified places as the place of occurrence of the external cause; Y99.8 Other external cause status
CPT/HCPCS: 99283